=== PATIENT | female | born 1960 | race Two or more races ===

== ENCOUNTER → 2016-12-26 | Day surgery (SDC) | payer OTHER ==
[2016-12-26] VITALS (11 sets, daily range): BP systolic 107–125; BP diastolic 66–78
[~2016-12-26] VITALS: Ht 170.2 cm; Wt 65.8 kg
[~2016-12-26] MED LIST: Alfentanil 2ml Inj ONE; Atropine Inj 1mg/10ml Syr IV PRN; Bupivacaine w/Epi 0.25% 30ml Vial INJ ONE; D5 1/2NS 1,000 ML IV SCH; Dexamethasone 4mg/ml vial ONE; DiphenhydrAMINE 50mg/ml Inj IVP PRN; Duramorph PF 10mg/10ml amp EPIDUR ONE; EPINEPHrine 1mg/1ml Amp ONE; HYDROmorphone 1mg/ml Carpuject SUBQ PRN; Hydromorphone 0.5mg/0.5ml inj IVP PRN; Kenalog-40 1ml Vial ONE; Ketorolac 30mg Inj IV PRN; Ketorolac 60mg Inj IV PRN; LORazepam Inj 2mg/ml 1ml IV PRN; LR 1000ml 1,000 ML IVLG SCH; LR 1000ml ONE; Lidocaine 1% MPF 10mg/ml 5ml ONE; Meperidine 25mg/0.5ml Inj IV PRN; Metoclopramide 10mg/2ml Inj IVP PRN; Midazolam 2mg/2ml Inj IVP PRN; Midazolam 2mg/2ml Inj ONE; Morphine Sulfate PF 10 ML ONE; NKM; NS Irrig 4000ml IRRIG ONE; Norco 5mg/325mg tab ORAL PRN; Norco 7.5mg/325mg tab ORAL PRN; Oxycodone/Acetaminophen 5-325 ORAL PRN; Propofol 10mg/ml 20ml IV ONE; Ropivacaine 5mg/ml Vial 20ml INJ ONE; Sterile Water Irrig 1000ml IRRIG ONE; Tylenol #3 tab (300mg/30mg) ORAL PRN; ceFAZolin 1gm in D5W 55ml IVP ONE; celeBREX 200mg Cap **SURGERY PATIENTS ONLY ORAL ONE; fentaNYL 100 mcg/2 mL IV PRN; oxyCONTIN 20mg tab ORAL ONE
--- NOTE | 2016-12-26 14:36 | Anethesia Preoperative Eval ---
Anesthesia Pre-op PMH/ROS General Date of Evaluation: Dec 26, 2016 Time of Evaluation: 15:46 Anesthesiologist: Sean ASA Score: ASA 2 Mallampati Score Class I : Soft palate, uvula, fauces, pillars visible Class II: Soft palate, uvula, fauces visible Class III: Soft palate, base of uvula visible Class IV: Only hard plate visible Mallampati Classification: Class II Surgeon: Vic Diagnosis: L Shoulder Pain Surgical Procedure: L Shoulder Release Anesthesia History: none Family History: no anesthesia problems Allergies: Coded Allergies: No Known Allergies (Unverified , 12/25/16) Medications: see eMAR Anesthesia Pre-op Phys. Exam Physician Exam Last Vital Signs Date Time Temp Pulse Resp B/P Pulse Ox O2 Delivery O2 Flow Rate FiO2 12/26/16 11:43 98.1 68 20 107/76 97 Room Air Constitutional: NAD Neurologic: CN 2-12 intact Cardiovascular: RRR Respiratory: CTA Gastrointestinal: S/NT/ND Airway Exam Mallampati Score: Class II MO: full ROM: limited Teeth: intact Anesthesia Pre-op A/P Risk Assessment & Plan Assessment: ASA 2 Plan: GA, BIS, L Supraclavicular Block Status Change Before Surgery: No Pre-Antibiotics Dru Gram Ancef IV Given Within 1 Hr of Incision: Yes Time Given: 16:11 Esvin Estrada MD Dec 26, 2016 14:36
--- NOTE | 2016-12-26 15:04 | 48 Hour Post Anesthesia Eval ---
Post Anesthesia Evaluation Procedure: L Shoulder Arthroscpy Date of Evaluation: Dec 26, 2016 Time of Evaluation: 19:24 Blood Pressure Systolic: 113 0: 67 Pulse Rate: 68 Respiratory Rate: 18 Temperature (Fahrenheit): 98.2 O2 Sat by Pulse Oximetry: 99 Airway: patent Nausea: No Vomiting: No Pain Intensity: 1 Hydration Status: adequate Cardiopulmonary Status: Stable Mental Status/LOC: patient returned to baseline Follow-up Care/Observations: 0 Post-Anesthesia Complications: 0 Follow-up care needed: ready to discharge Esvin Estrada MD Dec 26, 2016 15:04
--- NOTE | 2016-12-26 15:04 | Immediate Post-Op Evaluation ---
Immediate Post-Op Evalulation Immediate Post-Op Evalulation Procedure: L Shoulder Arthroscpy Date of Evaluation: Dec 26, 2016 Time of Evaluation: 17:20 IV Fluids: 1000 LR Blood Products: 0 Estimated Blood Loss: 3 Urinary Output: 0 Blood Pressure Systolic: 101 Blood Pressure Diastolic: 72 Pulse Rate: 89 Respiratory Rate: 16 O2 Sat by Pulse Oximetry: 100 Temperature (Fahrenheit): 97.6 Pain Score (1-10): 1 Nausea: No Vomiting: No Complications 0 Patient Status: awake, reacts, patent, extubated, none Hydration Status: adequate Dru Gram Ancef IV Given Within 1 Hr of Incision: Yes Time Given: 16:11 Esvin Estrada MD Dec 26, 2016 15:04
--- NOTE | 2017-01-01 23:49 | Operative Note - Dictated ---
DATE OF OPERATION: 12/26/2016 PREOPERATIVE DIAGNOSES: 1. Left shoulder partial rotator cuff tear. 2. Left shoulder adhesive capsulitis. POSTOPERATIVE DIAGNOSES: 1. Left shoulder partial rotator cuff tear. 2. Left shoulder adhesive capsulitis. PROCEDURES: 1. Left shoulder diagnostic arthroscopy and gamble capsular release. 2. Left shoulder arthroscopic subacromial decompression/bursectomy. 3. Left shoulder manipulation under anesthesia. SURGEON: Wilson Ho M.D. ANESTHESIA: Interscalene with general. INDICATION FOR PROCEDURE: The patient is a pleasant female who has had left shoulder rotator cuff tear and significant adhesive capsulitis. She has not had improvement with any conservative measure including physical therapy and therefore elected to undergo manipulation under anesthesia of the left shoulder with possible arthroscopic capsular release. Risks, limitations, expectations, and complications of procedure were discussed in detail. All questions were addressed. DESCRIPTION OF PROCEDURE: An informed consent was obtained. The patient was brought to the operating room and placed under interscalene general anesthesia. The patient was carefully placed in a beach chair position and padded all the extremities. Left shoulder was prepped and draped in a sterile manner. Time-out was performed. At this point, examination under anesthesia was performed, the shoulder was flexed to 130 degrees, adduction 90 degrees, external rotation to 90 degrees, and internal rotation to 80 degrees. At this point, a posterolateral skin incision was then made. A trocar was introduced into the glenohumeral joint. The hematoma in the shoulder was completely evacuated. A rotator interval was visualized. An anteromedial working portal was established. At this point, there were no symptoms of chondral damage, they appeared to be intact along the superior edge and of the rotator cuff. No loose bodies. At this point, the rotator interval was then released using electrocautery. Once adequate release was performed, the camera was placed in the anteromedial working portal. The posterior capsule was well visualized and capsulotomy of the posterior capsule was also performed making sure we did not go too inferior near the axillary nerve. Once that was done, the camera was placed in the subacromial space and deep bursectomy was performed. Intraarticular injection containing 0.25% Marcaine, 40 mg of Kenalog, 30 mg Toradol, and 5 mL of Duramorph was injected. The patient was then awoken and taken to recovery room with stable vital signs. ESTIMATED BLOOD LOSS: Minimal. COMPLICATIONS: None. SPECIMENS: None. IMPLANTS: None. Wilson Ho M.D. DR: TITO JOB#: [id number] CC:
== END | disposition home or self-care (01) ==
LOC: SUR 10:51
DX: S46.012A Strain of muscle(s) and tendon(s) of the rotator cuff of left shoulder, initial encounter (principal); M75.02 Adhesive capsulitis of left shoulder; V43.52XA Car driver injured in collision with other type car in traffic accident, initial encounter; Y92.410 Unspecified street and highway as the place of occurrence of the external cause; Y99.9 Unspecified external cause status
CPT/HCPCS: 29823; J0171; J0690; J1100; J1885; J2250; J2274; J2405; J2704; J2795; J3301; J3490; J7120; 94003; 94150